=== PATIENT | female | born 1980 | race Caucasian/White ===

== ENCOUNTER 2022-03-04 13:32 | Outpatient (CLI) | payer OTHER, SELFPAY ==
--- NOTE | 2022-03-04 13:40 | CRLHL7_ITS ---
For Patients: As a result of the Century Cures Act, medical imaging exams and procedure reports are released immediately into your electronic medical record. You may view this report before your referring provider. If you have questions, please contact your health care provider. BILATERAL SCREENING MAMMOGRAM WITH COMPUTER-AIDED DETECTION AND TOMOSYNTHESIS TECHNIQUE: CC and MLO views were obtained. These mammographic images have been obtained using full-field digital technique. These mammographic images were interpreted with the benefit of computer-aided detection. Breast Tomosynthesis was used in this interpretation. COMPARISON FILM: 01/25/21. FINDINGS: The breasts are heterogeneously dense, which may obscure small masses IMPRESSION: There is no radiographic evidence for malignancy. ASSESSMENT: BI-RADS Category 1: Negative RECOMMENDATION: Routine screening mammogram in 1 year. A lay language report of this examination will be provided to the patient. Mihir Locke M.D. Diagnostic Radiologist [email or web address] NOMAN/Dictated by: Mihir Locke MD @ 03/05/2022 8:25:00 AM (Electronically Signed)
== END 2022-03-04 13:33 | disposition home or self-care (01) ==
LOC: MAMMO 13:33
PROVIDERS: Visit Provider Physician Assistant
DX: Z12.31 Encounter for screening mammogram for malignant neoplasm of breast (principal); R92.2 Inconclusive mammogram
CPT/HCPCS: 77063; 77067

== ENCOUNTER 2023-06-30 13:27 | Outpatient (CLI) | payer OTHER, SELFPAY ==
--- OUTSIDE RECORDS SUMMARY | 2023-06-30 13:31 | XMS_ITS | Clinical Summary ---
Author Name Unknown Organization [email or web address] Address [place], [place] [address] Care Team Providers Care Sewer Head Name Role Phone Pcp, No Primary Care Provider Unavailabl e Allergies Active Allergy Reactions Criticality Noted Date Comments Sulfa (Sulfonamide Antibiotics) Hives 09/24 Medications No known medications Active Problems No known active problems Social History Tobacco Use Types Packs/Day Years Used Date Smoking Tobacco: Never Smokeless Tobacco: Never Tobacco Cessation:Counseling Given: Yes Social Connections Answer Date Recorded Frequency of Communication with Friends and Fami ly Not on file 05/26/2021 Financial Resource Strain Answer Date R ecorded Difficulty of Paying Living Expenses Not on file 05/26/2021 Difficulty of Paying Living Expenses Not on file 05/26/2021 Sex and Gender Information Value Date Recorded Sex Assigned at Not on file Gender Identity Not on file Sexual Orientation Not on file Obstetrics History Last Filed Vital Signs Vital Sign Reading Time Taken Comments Blood Pressure 99/65 10/17/2020 1:17 PM CDT Pulse 90 10/17/2020 1:17 PM CDT Temperature 37.3 ??C (99.1 ??F) 10/17/2020 1:17 PM CD T Respiratory Rate - - Oxygen Saturation 97% 10/17/2020 1:17 PM CDT Inhaled Oxygen Concentration - - Weight 58.1 kg (128 lb) 10/17/2020 1:17 PM CDT Height 170.2 cm (5' 7) 10/17/2020 1:17 PM CDT Body Mass Index 20.05 10/17/2020 1:17 PM CDT Plan of Treatment Health Maintenance Due Date Last Done Comments COVID-19 vaccine series (#1) 1981 Tdap 1992 Depression screening for age 12+ 1993 HIV for age 15-65 1996 Hepatitis C screening for age 18-79 1999 Tetanus booster 2001 BMI (ht and wt on same day) for age 18+ 10/17/2021 10/17/2020 Influenza for age 9-49 01/24/2023 Pap test for age 21-65 08/25/2023 , 08/24/2020, 02/26/2016, Additional history exists Pneumococcal series for age 6-64 Aged Out No longer eligible based on patient's age to complete this topic Care Teams Sewer Head Relationship Specialty Start Date End Date Pcp, No . PCP - General 10/16/20
--- NOTE | 2023-06-30 13:40 | CRLHL7_ITS ---
For Patients: As a result of the Century Cures Act, medical imaging exams and procedure reports are released immediately into your electronic medical record. You may view this report before your referring provider. If you have questions, please contact your health care provider. BILATERAL SCREENING MAMMOGRAM WITH COMPUTER-AIDED DETECTION AND TOMOSYNTHESIS TECHNIQUE: CC and MLO views were obtained. These mammographic images have been obtained using full-field digital technique. These mammographic images were interpreted with the benefit of computer-aided detection. Breast Tomosynthesis was used in this interpretation. COMPARISON FILM: 03/04/22, 01/25/21. FINDINGS: The breasts are heterogeneously dense, which may obscure small masses IMPRESSION: There is no radiographic evidence for malignancy. ASSESSMENT: BI-RADS Category 1: Negative RECOMMENDATION: Routine screening mammogram in 1 year. A lay language report of this examination will be provided to the patient. Mihir Locke M.D. Diagnostic Radiologist [email or web address] NOMAN/Dictated by: Mihir Locke MD @ 07/01/2023 9:52:00 AM (Electronically Signed)
== END 2023-06-30 13:28 | disposition home or self-care (01) ==
LOC: MAMMO 13:29
PROVIDERS: Visit Provider Physician Assistant
DX: Z12.31 Encounter for screening mammogram for malignant neoplasm of breast (principal); R92.2 Inconclusive mammogram
CPT/HCPCS: 77063; 77067